=== PATIENT | male | born 1970 | race American Indian/Alaskan Native ===

== ENCOUNTER 2019-09-03 16:45 | Emergency (ER) | payer SELFPAY ==
--- NOTE | 2019-09-03 17:32 | Emergency Department Report ---
Blank Doc - Documentation Documentation: 49-year-old male that presents with right hand pain. This initial assessment/diagnostic orders/clinical plan/treatment(s) is/are subject to change based on patient's health status, clinical progression and re- assessment by fellow clinical providers in the ED. Further treatment and workup at subsequent clinical providers discretion. Patient/guardians urged not to elope from the ED as their condition may be serious if not clinically assessed and managed. Initial orders include: 1- Patient sent to [facility] for further evaluation and treatment 2- xrays
--- NOTE | 2019-09-03 18:42 | XRay Report ---
Right hand 2 views INDICATION: Right hand pain following injury IMPRESSION: There is an obliquely oriented fracture identified involving the base of the fourth metac arpal with mild dorsal displacement. No discrete fracture of the fifth metacarpal is identified. Signer Name: Venkata Pepper MD Signed: 09/03/2019 6:37 PM Workstation Name: [id number]
[2019-09-03] MEDS ORDERED: IBUPROFEN 600 MG TAB PO ONE (20:20)
[2019-09-03] MEDS ORDERED: ONDANSETRON 4 MG ODT TAB PO ONE (20:20)
[2019-09-03] MEDS ORDERED: HYDROcodone/ACETAMINOPHEN 7.5-325MG TAB PO ONE (20:20)
--- NOTE | 2019-09-03 20:49 | Emergency Department Report ---
ED Upper Extremity Inj HPI - General Chief Complaint: Extremity Injury, Upper Stated Complaint: RT HAND POSS BROKEN/PAIN Time Seen by Provider: 09/03/19 17:31 Source: patient Mode of arrival: Ambulatory Limitations: No Limitations - History of Present Illness Initial Comments: Patient is a 49-year-old -[place] male with no past medical history p resents to the ED accompanied acute onset persistent severe right hand pain and swelling with deformity after he tripped and fell down and landed on his right hand 2 weeks ago. Patient states that initially did not think it was significant injury, but subsequently the pain got worse and he realized that there was something wrong so he decided come to the ED today for evaluation. Patient denies numbness or tingling or weakness of the right hand, head or neck injuries, back pain, wrist pain, right shoulder pain, and hip pain, dizziness, syncope or loss of consciousness. MD Complaint: Injury to:: right, hand -: Sudden, week(s) (2) Other Extremity Injury: Hand: Right (pain, swelling and deformity) Other Injuries: none Handedness: right Place: home Severity scale (0 -10): 7 Improves With: movement Worsens With: none Context: fall, direct blow Associated Symptoms: denies other symptoms. denies: weakness, numbness, neck pain, suspects foreign body, nausea/vomiting, heard/felt popping sensat Treatments Prior to Arrival: NSAIDS - Related Data Previous Rx's Medication Instructions Recorded Last Taken Type Cyclobenzaprine [Flexeril] 10 mg PO Q8H PRN #21 tablet 09/03/19 Unknown Rx HYDROcodone/APAP 5-325 [[place] 1 each PO Q6HR PRN #12 tablet 09/03/19 Unknown Rx 5/325] Ibuprofen [Motrin] 800 mg PO Q8HR PRN #24 tablet 09/03/19 Unknown Rx Allergies Allergy/AdvReac Type Severity Reaction Status Date / Time No Known Allergies Allergy Verified 09/03/19 16:47 ED Review of Systems ROS: Stated complaint: RT HAND POSS BROKEN/PAIN Other details as noted in HPI Constitutional: denies: chills, fever Eyes: denies: eye pain, eye discharge, vision change ENT: denies: ear pain, throat pain Respiratory: denies: cough, shortness of breath, wheezing Cardiovascular: denies: chest pain, palpitations Endocrine: no symptoms reported Gastrointestinal: denies: abdominal pain, nausea, diarrhea Genitourinary: denies: urgency, dysuria Musculoskeletal: joint swelling (right hand), arthralgia (right hand), myalgia. denies: back pain Skin: denies: rash, lesions Neurological: denies: headache, weakness, paresthesias Psychiatric: denies: anxiety, depression Hematological/Lymphatic: denies: easy bleeding, easy bruising ED Past Medical Hx - Past Medical History Previous Medical History?: No - Surgical History Past Surgical History?: No - Social History Smoking Status: Never Smoker Substance Use Type: None - Medications Home Medications: Home Medications Medication Instructions Recorded Confirmed Last Taken Type Cyclobenzaprine [Flexeril] 10 mg PO Q8H PRN #21 tablet 09/03/19 Unknown Rx HYDROcodone/APAP 5-325 [[place] 1 each PO Q6HR PRN #12 tablet 09/03/19 Unknown Rx 5/325] Ibuprofen [Motrin] 800 mg PO Q8HR PRN #24 tablet 09/03/19 Unknown Rx ED Physical Exam - General Limitations: No Limitations General appearance: alert, in no apparent distress - Head Head exam: Present: atraumatic, normocephalic, normal inspection - Eye Eye exam: Present: normal appearance, PERRL, EOMI Pupils: Present: normal accommodation - ENT ENT exam: Present: normal exam, normal orophraynx, mucous membranes moist, TM's normal bilaterally, normal external ear exam - Neck Neck exam: Present: normal inspection, full ROM. Absent: tenderness, meningismus, lymphadenopathy, thyromegaly - Respiratory Respiratory exam: Present: normal lung sounds bilaterally. Absent: respiratory distress, wheezes, rales, rhonchi, chest wall tenderness, accessory muscle use, decreased breath sounds, prolonged expiratory - Cardiovascular Cardiovascular Exam: Present: regular rate, normal rhythm, normal heart sounds. Absent: systolic murmur, diastolic murmur, rubs, gallop - GI/Abdominal GI/Abdominal exam: Present: soft, normal bowel sounds. Absent: tenderness, guarding, rebound, hyperactive bowel sounds, hypoactive bowel sounds, mass, bruit - Rectal Rectal exam: Present: deferred - Extremities Exam Extremities exam: Present: full ROM, tenderness (Palpable right hand tenderness, swelling and deformity), normal capillary refill, joint swelling (Right hand) - Back Exam Back exam: Present: normal inspection, full ROM. Absent: tenderness, CVA tenderness (L), muscle spasm, paraspinal tenderness - Neurological Exam Neurological exam: Present: alert, oriented X3, CN II-XII intact, normal gait, reflexes normal - Psychiatric Psychiatric exam: Present: normal affect, normal mood - Skin Skin exam: Present: warm, dry, intact, normal color. Absent: rash ED Course Vital Signs 09/03/19 17:31 Temperature 97.5 F L Pulse Rate 78 Respiratory 14 Rate Blood Pressure 165/79 O2 Sat by Pulse 97 Oximetry - Reevaluation(s) Reevaluation #1: 09/03/19 20:51 This is a 49-year-old male who presented to the ED with right hand pain and swelling for 2 weeks after a fall. In the ED, patient is alert and oriented 3 and is not in distress but appears to be in pain. Right hand x-ray shows an obliquely oriented fracture identified involving the base of the fourth metacarpal with mild dorsal displacement. No discrete fracture of the fifth metacarpal is identified. The right hand was splinted in the ED with ulnar gutter splint. Patient was treated for pain and discharged home on pain medications and muscle relaxants, and was referred to the orthopedic surgeon material preparation worker Dr. Davis for further evaluation and treatment. Patient was advised to contact an episode of his fasting in the morning to schedule an appointment for follow-up. Patient is advised to return to the ED immediately if symptoms get worse. ED Medical Decision Making - Radiology Data Radiology results: report reviewed, image reviewed Findings [address] [address] XRay Report Signed Patient: HEMANTH CROWELL MR#: [id number] : 1970 Acct:[id number] Age/Sex: 49 / M ADM Date: 09/03/19 Loc: ED Attending Dr: Ordering Physician: JING HAWKINS NP Date of Service: 09/03/19 Procedure(s): XR hand 3+V RT Accession Number(s): [id number] cc: JING HAWKINS NP Fluoro Time In Minutes: Right hand 2 views INDICATION: Right hand pain following injury IMPRESSION: There is an obliquely oriented fracture identified involving the base of the fourth metacarpal with mild dorsal displacement. No discrete fracture of the fifth metacarpal is identified. Signer Name: Venkata Pepper MD Signed: 09/03/2019 6:37 PM Workstation Name: [id number] Transcribed By: BC Dictated By: Venkata Pepper MD Electronically Authenticated By: Venkata Pepper MD Signed Date/Time: 09/03/19 8167 - Medical Decision Making This is a 49-year-old male who presented to the ED with right hand pain and swelling for 2 weeks after a fall. In the ED, patient is alert and oriented 3 and is not in distress but appears to be in pain. Right hand x-ray shows an obliquely oriented fracture identified involving the base of the fourth metacarpal with mild dorsal displacement. No discrete fracture of the fifth metacarpal is identified. The right hand was splinted in the ED with ulnar gutter splint. Patient was treated for pain and discharged home on pain medications and muscle relaxants, and was referred to the orthopedic surgeon material preparation worker Dr. Davis for further evaluation and treatment. Patient was advised to contact an episode of his fasting in the morning to schedule an appointment for follow-up. Patient is advised to return to the ED immediately if symptoms get worse. - Differential Diagnosis Boxer fracture; Hand contusion; Hand sprain; muscle strain Critical care attestation.: If time is entered above; I have spent that time in minutes in the direct care of this critically ill patient, excluding procedure time. ED Disposition Clinical Impression: Displaced fracture of base of fourth metacarpal bone, right hand, initial encounter for closed fracture Contusion of right hand including fingers Qualifiers: Encounter type: initial encounter Qualified Code(s): S60.221A - Contusion of right hand, initial encounter; S60.00XA - Contusion of unspecified finger without damage to nail, initial encounter Disposition: DC-01 TO HOME OR SELFCARE Is pt being admited?: No Does the pt Need Aspirin: No Condition: Stable Instructions: Boxer Fracture (ED), Hand Sprain (ED), Contusion in Adults (ED) Additional Instructions: Take medications with food, drink plenty of fluids and follow-up with Dr. Davis, the orthopedic surgeon material preparation worker for further evaluation. Please call Dr. Davis's first thing in the morning to schedule a follow-up appointment for furt her evaluation. Return to the ED immediately if symptoms get worse. Prescriptions: Cyclobenzaprine [Flexeril] 10 mg PO Q8H PRN #21 tablet PRN Reason: Muscle Spasm Ibuprofen [Motrin] 800 mg PO Q8HR PRN #24 tablet PRN Reason: Pain , Severe (7-10) HYDROcodone/APAP 5-325 [[place] 5/325] 1 each PO Q6HR PRN #12 tablet PRN Reason: Pain Referrals: MAYDA DAVIS MD [Staff Physician] - 24 Hours Time of Disposition: 20:56 Print Language: PASHTO
[2019-09-03 21:26] VITALS: BP 105/79
== END 2019-09-03 21:24 | disposition home or self-care (01) ==
LOC: ED 16:45
DX: S62.314A Displaced fracture of base of fourth metacarpal bone, right hand, initial encounter for closed fracture (principal); S60.221A Contusion of right hand, initial encounter; W01.0XXA Fall on same level from slipping, tripping and stumbling without subsequent striking against object, initial encounter; Y93.89 Activity, other specified; Y92.009 Unspecified place in unspecified non-institutional (private) residence as the place of occurrence of the external cause; Y99.8 Other external cause status
CPT/HCPCS: Q0162